=== PATIENT | female | born 1990 | race Caucasian/White ===

== ENCOUNTER 2018-11-18 09:36 | Observation (INO) ==
[2018-11-18] MEDS ORDERED: 0.9 % SODIUM CHLORIDE 1,000 ML IV ONE (09:42)
[2018-11-18 10:30] LABS: Basophils # (Auto) 0 K/mcL (0.0-0.3); Basophils % (Auto) 0.4 % (0.0-2.0); Eosinophils # (Auto) 0 K/mcL (0.0-0.7); Eosinophils % (Auto) 0.4 % (0.0-7.0); Granulocytes % (Auto) 69.2 % (38.0-78.0); Hematocrit 42.7 % (36.0-48.0); Hemoglobin 14.1 g/dL (12.0-15.0); Lymphocytes # (Auto) 2.5 K/mcL (1.5-4.8); Lymphocytes % (Auto) 21.7 % (15.5-49.0); Mean Cell Volume 84.9 fL (80.0-100.0); Mean Platelet Volume 7.9 fL (7.4-10.4); Monocytes # (Auto) 0.9 K/mcL (0.1-0.9); Monocytes % (Auto) 8.3 % (1.0-12.0); Platelet Count 317 K/mcL (140-440); RBC 5.03 M/mcL (4.00-5.20); Red Cell Distribution Width 15.7 % (11.5-14.5); WBC 11.4 K/mcL (4.5-11.0)
[2018-11-18] MEDS ORDERED: ONDANSETRON 4 MG/2 ML VIAL IV ONE (10:35)
[2018-11-18] MEDS: HYDROmorphone 2 MG/ML VIAL IV PRN ×3 (10:44→16:44)
[2018-11-18 10:53] LABS: ALT/SGPT 145 U/l (0-40); AST/SGOT 255 U/l (0-37); Albumin 4.4 gm/dL (3.2-5.2); Albumin/Globulin Ratio 1.3 (1.0-2.3); Alkaline Phosphatase 110 U/L (39-117); Bilirubin,Total 0.5 mg/dL (0.0-1.0); Blood Urea Nitrogen 10 mg/dl (6-20); CRP,High Sensitivity 9.8 mg/L (1.0-3.0); Calcium 9.7 mg/dl (8.6-10.4); Carbon Dioxide 23 mmol/L (22-30); Chloride 105 mmol/L (96-108); Globulin 3.4 gm/dL (2.2-3.7); Glomerular Filtration Rate 101; Glucose 109 mg/dL (70-105)
[2018-11-18 12:02] LABS: Appearance,Urine CLEAR; Bacteria,Urine FEW /hpf (0); Bilirubin,Urine NEG (NEG); Color,Urine YELLOW; Glucose,Urine (UA) NEGATIVE (NEG); Ketones,Urine NEG (NEG); Leukocyte Esterase,Urine NEG /uL (NEG); Nitrate,Urine NEG (NEG); Protein,Urine NEG (NEG); Specific Gravity,Urine 1.012 (1.000-1.035); Urine Blood NEG mg/dL (<0.03); Urine RBC < 1 /hpf (0-1); Urine Squamous Epithelial Cell < 1 /hpf (0-4); Urine WBC 1 /hpf (0-4); Urobilinogen,Urine NEG (NEG)
[2018-11-18 12:03] LABS: Culture Indicated,Urine YES
--- NOTE | 2018-11-18 12:17 | Emergency Department Note ---
Abdominal Pain HPI - General Chief Complaint: Abdominal Pain Stated Complaint: right upper abd pain every month since having baby Time Seen by Provider: 11/18/18 09:56 Source: patient Mode of arrival: ambulatory Limitations: no limitations - History of Present Illness HPI Narrative: 28-year-old female presents with right upper quadrant abdominal pain. This has been intermittent off and on for the last few months since she had her baby however it seems to have gotten much worse over the last few days. She has had chills but unknown fever. Positive nausea with some vomiting. No diarrhea. States it seems to get much worse after she eats sometimes but not always. No home treatments. States the last 48 hours it has progressively gotten worse and will not let up at all so she decided to come in.States that time the pain is so severe it radiates into her back and up into the right shoulder. - Related Data Home Medications Medication Instructions Recorded Confirmed No Known Home Meds 11/18/18 11/18/18 Allergies Allergy/AdvReac Type Severity Reaction Status Date / Time No Known Drug Allergies Allergy Verified 11/18/18 09:39 Review of Systems All systems ED: reviewed and negative except as stated. Abdominal Pain PMH - Past Medical History Medical history: Reports: other () Surgical history ED: Reports: no surgical history - Social History Smoking status: Never smoker Alcohol use: Reports: Rarely Drug use: Reports: none Physical Exam Limitations: no limitations General appearance: alert, grimacing Head: atraumatic, normocephalic, normal inspection Eye: Present: normal appearance. Absent: conjunctival injection ENT: Present: mucous membranes moist Chest: Present: symmetric chest wall rise Respiratory: Present: normal lung sounds bilaterally. Absent: respiratory distress, rales/crackles, wheezes, accessory muscle use Cardiovascular: Present: regular rate, normal heart sounds Abdominal: Present: soft, tenderness (RUQ), guarding (RUQ), normal bowel sounds. Absent: distention, rigidity, mass Extremities: Present: normal inspection Back: Absent: CVA tenderness (R), CVA tenderness (L) Neurological: Present: alert, oriented X3, normal gait Psychiatric: Present: normal affect, normal mood Skin: Present: warm, dry, intact, normal color. Absent: rash, hives, cyanosis, diaphoresis Course Course Narrative: Patient has required a couple doses of pain medication and her nausea is slightly improved. Still seems to be having some significant pain. At 1218 I did speak with the surgeon on-call, Dr. Barr would like me to put in some holding orders for this patient and he will plan to do surgery tomorrow. Patien t agreeable. Vital Signs Temperature 96.8 F L 11/18/18 09:37 Pulse Rate 90 11/18/18 09:37 Respiratory Rate 18 11/18/18 09:37 Blood Pressure 149/93 11/18/18 09:37 Pulse Oximetry (%) 98 11/18/18 09:37 Temperature 96.8 F L 11/18/18 09:37 Pulse Rate 67 11/18/18 12:07 Respiratory Rate 18 11/18/18 09:37 Blood Pressure 109/70 11/18/18 12:07 Pulse Oximetry (%) 95 11/18/18 12:07 Abdominal Pain - Lab Data Lab results reviewed: Yes I reviewed the patient's lab results. Result diagrams: 11/18/18 09:59 11/18/18 09:59 Lab Results 11/18/18 11/18/18 11/18/18 Range/Units 09:44 09:59 09:59 WBC 11.4 H (4.5-11.0) K/mcL RBC 5.03 (4.00-5.20) M/mcL Hgb 14.1 (12.0-15.0) g/dL Hct 42.7 (36.0-48.0) % MCV 84.9 (80.0-100.0) fL MCH 28.0 (26.0-34.0) pg MCHC 33.0 (31.0-36.0) g/dL RDW 15.7 H (11.5-14.5) % Plt Count 317 (140-440) K/mcL MPV 7.9 (7.4-10.4) fL Gran % 69.2 (38.0-78.0) % Lymph % (Auto) 21.7 (15.5-49.0) % Cedar % (Auto) 8.3 (1.0-12.0) % Eos % (Auto) 0.4 (0.0-7.0) % Baso % (Auto) 0.4 (0.0-2.0) % Gran # 7.9 (1.8-8.0) K/mcL Lymph # (Auto) 2.5 (1.5-4.8) K/mcL Cedar # (Auto) 0.9 (0.1-0.9) K/mcL Eos # (Auto) 0 (0.0-0.7) K/mcL Baso # (Auto) 0 (0.0-0.3) K/mcL Sodium 140 (133-145) mmol/L Potassium 4.4 (3.3-5.1) mmol/L Chloride 105 (96-108) mmol/L Carbon Dioxide 23 (22-30) mmol/L Anion Gap 12.0 (8-16) BUN 10 (6-20) mg/dl Creatinine 0.8 (0.6-1.1) mg/dl GFR Calculation 101 Glucose 109 H (70-105) mg/dL Calcium 9.7 (8.6-10.4) mg/dl Total Bilirubin 0.5 (0.0-1.0) mg/dL AST 255 H (0-37) U/l ALT 145 H (0-40) U/l Alkaline Phosphatase 110 (39-117) U/L C-React Prot High Sens 9.8 H (1.0-3.0) mg/L Total Protein 7.8 (5.9-8.4) gm/dL Albumin 4.4 (3.2-5.2) gm/dL Globulin 3.4 (2.2-3.7) gm/dL Albumin/Globulin Ratio 1.3 (1.0-2.3) Lipase 23 (7-60) U/L Urine Color Yellow Urine Appearance Clear Urine pH 5.0 (5.0-9.0) Ur Specific Capron 1.012 (1.000-1.035) Urine Protein Neg (NEG) mg/dL Urine Glucose (UA) Negative (NEG) mg/dL Urine Ketones Neg (NEG) mg/dL Urine Occult Blood Neg (<0.03) mg/dL Urine Nitrate Neg (NEG) Urine Bilirubin Neg (NEG) mg/dL Urine Urobilinogen Neg (NEG) mg/dL Ur Leukocyte Esterase Neg (NEG) /uL Urine RBC < 1 (0-1) /hpf Urine WBC 1 (0-4) /hpf Ur Squamous Epith Cells < 1 (0-4) /hpf Urine Bacteria Few A (0) /hpf Ur Culture Indicated? Yes - Radiology Data Radiology results reviewed: Yes I reviewed the patient's radiology results. Disposition Pt seen by STUDENT DEVELOPMENT COORDINATOR/PA only: Yes Clinical Impression: Abdominal pain, Cholelithiasis, Nausea & vomiting Disposition: Home, Self-Care Condition: Fair Referrals: No,PCP [Primary Care Provider] - Kyra Barr MD [Physician] - Time of Disposition: 12:19
[2018-11-18 12:55] LABS: INR 0.9 (0.9-1.1); Prothrombin Time 12.6 sec (11.9-14.5)
--- NOTE | 2018-11-18 13:17 | Ultrasound Report ---
CLINICAL INFORMATION: RUQ abd pain, n/v COMPARISON: None. FINDINGS: Liver is normal in size configuration with elevated echotexture compatible with fatty change. No focal hepatic lesion. There are multiple stones in the gallbladder ranging up to 6 mm. Gallbladder wall is normal thickness: Two mm. Common bile is normal: 7 mm. Pancreas is unremarkable. No free fluid IMPRESSION: Cholelithiasis. Hyperechoic liver bowel fatty change Interpreted and Authenticated by: Mingo Mccall 11/18/18
[2018-11-18] MEDS: 0.9 % SODIUM CHLORIDE 1,000 ML IV SCH ×2 (13:35→22:24)
[2018-11-18] MEDS: PIPERACILLIN SODIUM/TAZOBACTAM 3.375 GM in DEXTROSE 5% IN WATER 50 ML IV SCH ×3 (13:36→23:38)
[2018-11-18] MEDS ORDERED: PROMETHAZINE 25 MG/ML VIAL ONE (13:43)
[2018-11-18] MEDS ORDERED: ACETAMINOPHEN 1,000 MG/100 ML BOTTLE IV ONE ×2 (14:44→18:34)
[2018-11-18] MEDS: ACETAMINOPHEN 1,000 MG in PREMIX 1 BAG IV SCH ×2 (14:45→18:45)
--- NOTE | 2018-11-18 15:01 | General Surg History&Physical ---
History of Present Illness Patient information: Note initiated : 11/18/18 at 2:59 pm Service Date, if different from initiated Date: [] Patient: Lillian Meraz a 28 y/o F admitted on 11/18/18 for right upper abd pain every month since having baby. Chief Complaint: [abdominal pain nausea and vomiting] HPI: Ms. Meraz is a 28 year old F admitted with recurrent abdominal pain with nausea and vomiting. She had onset of symptoms in July show a left the delivery of her child. She was having multiple episodes of right upper quadrant pain which radiated through to her back and to her right shoulder. The pain would usually last 1-3 hours. It was associated with multiple episodes of nausea vomiting. The pain has become much worse over the past week. She has had 2 attacks in the past 72 hours. She did not have any pain during her . Her white blood count is 11,000. Abdominal ultrasound shows multiple stones in the gallbladder. She is counseled for laparoscopic cholecystectomy which will be performed tomorrow. Review of Systems All systems PM: reviewed and no additional remarkable complaints except as stated (negative except as noted in history present illness) Past History Past medical history: No chronic medical illness Past surgical history: 1 Past family history: Mother age 56 alive and well Father age 58 alive and well Brother age 26 alive and well Past social history: Denies tobacco use Drinks beer about every 2 weeks Denies drug use Medications and Allergies Home Medications Medication Instructions Recorded Confirmed Type No Known Home Meds 11/18/18 11/18/18 History Allergies Allergy/AdvReac Type Severity Reaction Status Date / Time No Known Drug Allergies Allergy Verified 11/18/18 09:39 Exam Temp Pulse Resp BP Pulse Ox 96.8 F L 65 18 102/72 95 11/18/18 13:13 11/18/18 13:13 11/18/18 13:13 11/18/18 13:13 11/18/18 13:13 - General physical appearance well developed, well nourished, no distress, obese - Eyes PERRL, normal ocular movement - ENT normal pinna, normal nares, normal mucosa, no hearing loss, no congestion - Head Head exam IM: Present: atraumatic, normocephalic - Neck no masses, no bruits, trachea midline, no lymphadenopathy, no venous distension - Cardiovascular Cardiovascular exam IM: Present: normal rate and rhythm, RRR, +S1, +S2. Absent: JVD, tachycardia - Respiratory normal expansion, normal respiratory effort, clear to auscultation - Abdomen Abdomen: Present: soft, tender (tenderness in right upper quadrant with guarding; mild tenderness in epigastrium), bowel sounds Hernia: Present: none - Genitourinary Present: normal external genitalia - Integumentary Present: no rash, no growths, no abnormal pigmentation - Neurologic Present: normal coordination, normal sensation - Musculoskeletal Present: normal gait, normal posture - Psychiatric Present: oriented to time, oriented to person, oriented to place, speech is normal, memory intact Assessment and Plan (1) Cholelithiasis and cholecystitis without obstruction Patient will be treated with antibiotics, analgesics and antiemetics tonight. She will be added to the schedule for cholecystectomy tomorrow. Status: Acute
[2018-11-18] MEDS: PANTOPRAZOLE 40 MG TABLET PO SCH (16:40)
[2018-11-18] MEDS: ONDANSETRON 4 MG/2 ML VIAL IV PRN (16:44)
[2018-11-18] MEDS: PROMETHAZINE 25 MG/ML VIAL IV PRN (18:23)
[2018-11-19] MEDS ORDERED: ACETAMINOPHEN 1,000 MG/100 ML BOTTLE IV ONE ×3 (00:07→09:24)
[2018-11-19] MEDS: ACETAMINOPHEN 1,000 MG in PREMIX 1 BAG IV SCH ×2 (00:13→06:48)
[2018-11-19 05:44] LABS: Basophils # (Auto) 0 K/mcL (0.0-0.3); Basophils % (Auto) 0.7 % (0.0-2.0); Eosinophils # (Auto) 0.2 K/mcL (0.0-0.7); Eosinophils % (Auto) 2.5 % (0.0-7.0); Granulocytes % (Auto) 52.6 % (38.0-78.0); Hematocrit 33.7 % (36.0-48.0); Hemoglobin 11.2 g/dL (12.0-15.0); Lymphocytes # (Auto) 2.3 K/mcL (1.5-4.8); Lymphocytes % (Auto) 35.9 % (15.5-49.0); Mean Cell Volume 86.2 fL (80.0-100.0); Mean Corpuscular HGB Conc 33.1 g/dL (31.0-36.0); Monocytes # (Auto) 0.5 K/mcL (0.1-0.9); Monocytes % (Auto) 8.3 % (1.0-12.0); Platelet Count 253 K/mcL (140-440); RBC 3.91 M/mcL (4.00-5.20); WBC 6.4 K/mcL (4.5-11.0)
[2018-11-19] MEDS: 0.9 % SODIUM CHLORIDE 1,000 ML IV SCH ×3 (05:55→12:12)
[2018-11-19] MEDS: PIPERACILLIN SODIUM/TAZOBACTAM 3.375 GM in DEXTROSE 5% IN WATER 50 ML IV SCH ×4 (05:55→23:31)
[2018-11-19 06:07] LABS: ALT/SGPT 175 U/l (0-40); AST/SGOT 155 U/l (0-37); Albumin 3.2 gm/dL (3.2-5.2); Albumin/Globulin Ratio 1.1 (1.0-2.3); Alkaline Phosphatase 95 U/L (39-117); Bilirubin,Direct 0.2 mg/dL (0.0-0.3); Bilirubin,Total 0.8 mg/dL (0.0-1.0); Blood Urea Nitrogen 5 mg/dl (6-20); Calcium 8.5 mg/dl (8.6-10.4); Carbon Dioxide 21 mmol/L (22-30); Chloride 109 mmol/L (96-108); Globulin 2.8 gm/dL (2.2-3.7); Glomerular Filtration Rate 119; Glucose 81 mg/dL (70-105); Lactate Dehydrogenase 216 U/L (94-250); Phosphorous 3.5 mg/dL (2.7-4.5); Triglycerides 124 mg/dl (<150); Uric Acid 3.3 mg/dL (2.5-8.0)
[2018-11-19] MEDS: PANTOPRAZOLE 40 MG TABLET PO SCH ×2 (06:48→17:03)
[2018-11-19] MEDS ORDERED: IPRATROPIUM/ALBUTEROL 3 ML AMPUL.NEB NEB PRN ×2 (07:30→09:24)
[2018-11-19] MEDS ORDERED: SCOPOLAMINE 1 PATCH PATCH TOPICAL PRN (07:30)
[2018-11-19] MEDS: HYDROmorphone 2 MG/ML VIAL IV PRN ×3 (08:29→18:24)
[2018-11-19] MEDS: ONDANSETRON 4 MG/2 ML VIAL IV PRN (08:30)
[2018-11-19] MEDS ORDERED: FLUMAZENIL 0.1 MG/ML ML IV PRN (09:24)
[2018-11-19] MEDS ORDERED: PROMETHAZINE 25 MG/ML VIAL IV PRN (09:24)
[2018-11-19] MEDS ORDERED: MEPERIDINE 50 MG/ML INJECTION IM PRN (09:24)
[2018-11-19] MEDS ORDERED: NALOXONE HCL 0.4 MG/ML VIAL IV PRN (09:24)
[2018-11-19] MEDS ORDERED: ONDANSETRON 4 MG/2 ML VIAL IV PRN (09:24)
[2018-11-19] MEDS ORDERED: LACTATED RINGERS 250 ML IV PRN (09:24)
[2018-11-19] MEDS ORDERED: KETOROLAC 30 MG/ML VIAL IV PRN (09:24)
[2018-11-19] MEDS ORDERED: diphenhydrAMINE 50 MG/ML VIAL IV PRN (09:24)
[2018-11-19] MEDS ORDERED: PROMETHAZINE 25 MG/ML VIAL IM PRN (09:24)
[2018-11-19] MEDS ORDERED: LACTATED RINGERS 1,000 ML IV SCH (09:30)
[2018-11-19] MEDS ORDERED: fentaNYL 250 MCG/5 ML VIAL IV ONE (10:00)
[2018-11-19] MEDS ORDERED: DEXAMETHASONE 10 MG/ML VIAL IV ONE (10:00)
[2018-11-19] MEDS ORDERED: LIDOCAINE HCL/PF 100 MG/5 ML SYRINGE IV ONE (10:00)
[2018-11-19] MEDS ORDERED: SUGAMMADEX SODIUM 200 MG/2 ML VIAL IV ONE (10:00)
[2018-11-19] MEDS ORDERED: MIDAZOLAM 5 MG/5 ML VIAL IV ONE (10:00)
[2018-11-19] MEDS ORDERED: PROPOFOL 200 MG/20 ML VIAL IV ONE (10:00)
[2018-11-19] MEDS ORDERED: ONDANSETRON 4 MG/2 ML VIAL IV ONE (10:00)
[2018-11-19] MEDS ORDERED: ROCURONIUM 10 MG/ML ML IV ONE (10:00)
--- NOTE | 2018-11-19 10:59 | Brief Operative Note ---
Date of procedure: 11/19/18 Pre-op diagnosis: ACUTE CHOLECYSTITIS WITH CHOLELITHIASIS Post-op diagnosis: other (ACUTE CHOLECYSTITIS WITH CHOLELITHIASIS) Procedure: LAPAROSCOPIC CHOLECYSTECTOMY Grafts/Implants: No Anesthesia: GETA Findings: DILATED EDEMATOUS GALLBLADDER WITH STONES Complications: none Surgeon: Kyra Barr Estimated blood loss (cc): 10 Specimens Removed/Pathology: other (GALLBLADDER) Condition: stable Disposition: PACU
[2018-11-19] MEDS: fentaNYL 100 MCG/2 ML VIAL IV PRN ×4 (11:12→11:30)
[2018-11-19] MEDS ORDERED: ACETAMINOPHEN 1,000 MG in PREMIX 1 BAG IV SCH (11:15)
[2018-11-19] MEDS: MEPERIDINE 25 MG/ML SYRINGE IV PRN ×2 (11:33→11:40)
[2018-11-19] MEDS: PROMETHAZINE 25 MG/ML VIAL IV PRN (12:12)
[2018-11-19] MEDS: 0.9 % SODIUM CHLORIDE 10 ML SYRINGE IV SCH ×2 (13:17→21:15)
--- NOTE | 2018-11-19 15:26 | Operative Note ---
DATE OF OPERATION: 11/19/2018 PREOPERATIVE DIAGNOSIS: Acute cholecystitis with cholelithiasis. POSTOPERATIVE DIAGNOSIS: Acute cholecystitis with cholelithiasis. PROCEDURE: Laparoscopic cholecystectomy. SURGEON: Kyra Barr M.D. DESCRIPTION OF PROCEDURE: Under general anesthesia, the patient's abdomen was prepped and draped in a sterile field. Timeout procedure was carried out as per protocol. A supraumbilical midline incision was made and Veress needle was inserted uneventfully. The abdomen was insufflated with 2.5 liters of CO2. A 12 mm port was placed. Laparoscope was placed. A dilated, edematous gallbladder with stone was encountered. It had a moderate amount of acute and chronic adhesions. Under videoscopic guidance, a 12 mm port and two 5 mm ports were placed in the right subcostal region. The gallbladder was decompressed with a Weck needle. It was then grasped and positioned. Adhesions were taken down with blunt dissection and electrocautery. The cystic duct and cystic artery were dissected definitively and followed back to the gallbladder. The cystic duct was clipped with five clips close to the gallbladder and divided. The cystic artery had two branches. Each was clipped with four clips on the wall of the gallbladder and divided. The gallbladder was then from the infrahepatic bed using electrocautery. It was placed in an Endopouch and retrieved. Hemostasis was achieved in the bed. There was no bleeding and there was no evidence of bile leak with careful watching. CO2 was allowed to escape from the abdomen and the ports were removed. Fascia at the umbilicus was closed with interrupted 0 Vicryl. Skin incisions were closed with faith. Tegaderm dressings were placed. The patient tolerated the procedure well. She was awakened, transferred to a bed, and taken to the postanesthetic care unit in stable, satisfactory condition. LCS:milka Job ID: [id number] Doc ID: [id number] Kyra Barr M.D.
[2018-11-19] MEDS ORDERED: PANTOPRAZOLE 40 MG TABLET PO SCH (17:00)
[2018-11-20] MEDS: HYDROmorphone 2 MG/ML VIAL IV PRN ×3 (04:25→12:22)
[2018-11-20] MEDS: 0.9 % SODIUM CHLORIDE 10 ML SYRINGE IV SCH (05:34)
[2018-11-20] MEDS: PIPERACILLIN SODIUM/TAZOBACTAM 3.375 GM in DEXTROSE 5% IN WATER 50 ML IV SCH ×2 (05:38→12:27)
[2018-11-20 05:39] LABS: Basophils # (Auto) 0 K/mcL (0.0-0.3); Basophils % (Auto) 0.2 % (0.0-2.0); Eosinophils # (Auto) 0 K/mcL (0.0-0.7); Eosinophils % (Auto) 0 % (0.0-7.0); Granulocytes % (Auto) 73.2 % (38.0-78.0); Hematocrit 36.9 % (36.0-48.0); Hemoglobin 12.1 g/dL (12.0-15.0); Lymphocytes # (Auto) 1.6 K/mcL (1.5-4.8); Lymphocytes % (Auto) 19.4 % (15.5-49.0); Mean Cell Volume 85.9 fL (80.0-100.0); Mean Corpuscular HGB Conc 32.9 g/dL (31.0-36.0); Mean Platelet Volume 8.2 fL (7.4-10.4); Monocytes # (Auto) 0.6 K/mcL (0.1-0.9); Monocytes % (Auto) 7.2 % (1.0-12.0); Platelet Count 262 K/mcL (140-440); RBC 4.29 M/mcL (4.00-5.20); Red Cell Distribution Width 15.8 % (11.5-14.5); WBC 8.3 K/mcL (4.5-11.0)
[2018-11-20 06:13] LABS: ALT/SGPT 332 U/l (0-40); AST/SGOT 371 U/l (0-37); Albumin 3.4 gm/dL (3.2-5.2); Albumin/Globulin Ratio 1.1 (1.0-2.3); Alkaline Phosphatase 154 U/L (39-117); Bilirubin,Direct 0.5 mg/dL (0.0-0.3); Blood Urea Nitrogen 4 mg/dl (6-20); Calcium 8.8 mg/dl (8.6-10.4); Carbon Dioxide 21 mmol/L (22-30); Chloride 106 mmol/L (96-108); Globulin 3.1 gm/dL (2.2-3.7); Glomerular Filtration Rate 119; Glucose 102 mg/dL (70-105); Lactate Dehydrogenase 401 U/L (94-250); Phosphorous 2.9 mg/dL (2.7-4.5); Triglycerides 115 mg/dl (<150); Uric Acid 2.5 mg/dL (2.5-8.0)
[2018-11-20] MEDS: PANTOPRAZOLE 40 MG TABLET PO SCH (06:58)
[2018-11-20] MEDS: 0.9 % SODIUM CHLORIDE 1,000 ML IV SCH (07:25)
[2018-11-20] MEDS: ONDANSETRON 4 MG/2 ML VIAL IV PRN (10:09)
--- NOTE | 2018-11-20 12:45 | Discharge Summary ---
Providers - Providers Patient information: Note initiated : 11/20/18 at 12:43 pm Service Date, if different from initiated Date: [] Patient: Lillian Meraz 28 y/o F admitted on 11/18/18 for right upper abd pain every month since having baby. Chief Complaint: [] Date of admission: 11/18/18 Discharge date: 11/20/18 Attending physician: Kyra Barr Hospitalization Hospital Course: 28-year-old female admitted on November 29 with cholelithiasis with cholecystitis. She underwent laparoscopic cholecystectomy on 19 November. She has done well and has no complaints. She is tolerating diet. White blood count 8.3, hemoglobin 12.1, bilirubin 1. Patient is stable for discharge home Discharge diagnosis: cholelithiasis with cholecystitis Reason for admission: abdominal pain nausea and vomiting Procedures: Laparoscopic cholecystectomy Complications: None Exam Temp Pulse Resp BP Pulse Ox 97.5 F 69 18 126/80 90 11/20/18 12:15 11/20/18 12:15 11/20/18 12:15 11/20/18 12:15 11/20/18 12:15 - General physical appearance well developed, well nourished, no distress - Eyes PERRL, normal ocular movement - ENT normal pinna, normal nares, normal mucosa, no hearing loss, no congestion - Head Head exam IM: Present: atraumatic, normocephalic - Neck no masses, no bruits, trachea midline, no lymphadenopathy, no venous distension - Cardiovascular Cardiovascular exam IM: Present: normal rate and rhythm - Respiratory normal expansion, normal respiratory effort, clear to percussion, clear to auscultation - Abdomen Abdomen: Present: soft, tender (mild tenderness around port site otherwise benign abdominal exam), bowel sounds Hernia: Present: none - Genitourinary Present: normal external genitalia - Integumentary Present: no rash, no growths, no abnormal pigmentation - Neurologic Present: normal coordination, normal sensation - Musculoskeletal Present: normal gait, normal posture - Psychiatric Present: oriented to time, oriented to person, oriented to place, speech is normal, memory intact Discharge Plan - Patient/Caregiver Discharge Instructions Activity: increase activity as tolerated Diet: Low Fat ( follow-up in the office in 2 weeks) Additional Instructions: Follow-up in the office in 2 weeks Work release for 2 weeks Prescriptions: oxyCODONE/APAP [Percocet 5-325 mg] 1 tab PO Q4HP PRN #40 tab PRN Reason: Pain Prescription Printed - Follow up Plan Follow up with: Kyra Barr MD [Physician] - 12/04/18 8:30 am No,PCP [Primary Care Provider] - Disposition: Home, Self-Care Care Plan Goals: This discharge packet is provided to you to help keep you informed about your care. We want to ensure you get everything you need when you go home. You will also be receiving a call from us in a few days to follow up with you and see how you are doing since your discharge. This gives us a chance to listen to any concerns you maybe experiencing since you were discharged or any additional needs you may have, as well as providing us feedback on your care experience. We strive to always provide excellent care and thank you for your feedback and for choosing [facility]. Prognosis: Good Rehab Potential: Good I certify that the patient requires SNF services.: No Overall status at discharge: patient is progressing back to baseline Pending Studies Resuscitation Status Full Code Diet Full Liquid Diet Start SatNov 19 1102 Hydromorphone HCl (Dilaudid) 1 mg IV Q2HP PRN; Protocol PRN Reason: Per Pain Protocol Last Admin: 11/20/18 12:22 Dose: 1 mg Documented by: Admin: 11/20/18 08:10 Dose: 1 mg Documented by: Admin: 11/20/18 04:25 Dose: 1 mg Documented by: Admin: 11/19/18 18:24 Dose: 1 mg Documented by: Admin: 11/19/18 14:53 Dose: 1 mg Documented by: Admin: 11/19/18 08:29 Dose: 1 mg Documented by: [email or web address] Admin: 11/18/18 16:44 Dose: 1 mg Documented by: [email or web address] Piperacillin Sod/Tazobactam (Sod 3.375 gm/ Dextrose) 50 mls @ 100 mls/hr IV Q6H [facility]; Protocol Last Admin: 11/20/18 12:27 Dose: 100 mls/hr Documented by: Infusion: 11/20/18 06:30 Dose: 100 mls/hr Documented by: Admin: 11/20/18 05:38 Dose: 100 mls/hr Documented by: Infusion: 11/20/18 00:01 Dose: 100 mls/hr Documented by: Admin: 11/19/18 23:31 Dose: 100 mls/hr Documented by: Infusion: 11/19/18 17:36 Dose: 0 mls/hr Documented by: Admin: 11/19/18 17:06 Dose: 100 mls/hr Documented by: Infusion: 11/19/18 12:42 Dose: 0 mls/hr Documented by: Admin: 11/19/18 12:12 Dose: 100 mls/hr Documented by: Infusion: 11/19/18 06:25 Dose: 0 mls/hr Documented by: Admin: 11/19/18 05:55 Dose: 100 mls/hr Documented by: Infusion: 11/19/18 00:08 Dose: 100 mls/hr Documented by: Admin: 11/18/18 23:38 Dose: 100 mls/hr Documented by: Infusion: 11/18/18 18:45 Dose: 100 mls/hr Documented by: Admin: 11/18/18 18:15 Dose: 100 mls/hr Documented by: Infusion: 11/18/18 14:06 Dose: 0 mls/hr Documented by: Admin: 11/18/18 13:36 Dose: 100 mls/hr Documented by: DENISE Sodium Chloride (Sodium Chloride 0.9%) 1,000 mls @ 75 mls/hr IV .[id number] FROYLAN Last Admin: 11/20/18 07:25 Dose: 75 mls/hr Documented by: Infusion: 11/20/18 06:30 Dose: 75 mls/hr Documented by: Admin: 11/19/18 12:12 Dose: 75 mls/hr Documented by: DENISE Ondansetron HCl (Zofran) 4 mg IV Q4-6HP PRN PRN Reason: Nausea And Vomiting Last Admin: 11/20/18 10:09 Dose: 4 mg Documented by: Admin: 11/19/18 08:30 Dose: 4 mg Documented by: Admin: 11/18/18 16:44 Dose: 4 mg Documented by: DENISE Pantoprazole Sodium (Protonix) 40 mg PO BIDAC [facility] Last Admin: 11/20/18 06:58 Dose: 40 mg Documented by: Admin: 11/19/18 17:03 Dose: 40 mg Documented by: Admin: 11/19/18 06:48 Dose: Not Given Documented by: Admin: 11/18/18 16:40 Dose: 40 mg Documented by: DENISE Promethazine HCl (Phenergan) 12.5 mg IV Q4HP PRN PRN Reason: Nausea And Vomiting Last Admin: 11/19/18 12:12 Dose: 12.5 mg Documented by: Admin: 11/18/18 18:23 Dose: 12.5 mg Documented by: DENISE Sodium Chloride (Saline Flush) 10 ml IV Q8 [facility] Last Admin: 11/20/18 05:34 Dose: Not Given Documented by: Admin: 11/19/18 21:15 Dose: Not Given Documented by: Admin: 11/19/18 13:17 Dose: Not Given Documented by: DENISE Shift Summary 11/20/18 04:34 Shift Summary by Brittney Mcclendon The patient is alert and oriented times four, able to make needs known, VS WDL last night. She has 4 lap sites with faith and transparent dressings to her abdomen with scant to no drainage. Abdomen soft and is passing flatus, has denied nausea all shift, medicated twice with 1 mg Dilaudid (last dose given at 0415). Has a steady gait is up to void in restroom (850-900 ml at at time) and requires assist with IV pole only, is tolerating full liquid diet and has taken PO well. Is receiving Zosyn IV scheduled and has NS infusing at 75 ml/hr into at 20 gauge right hand. Her significant other and baby were at bedside last evening, plan is to discharge to home later today. Initialized on 11/20/18 04:34 - END OF NOTE
--- NOTE | 2018-11-20 14:27 | Surgical Pathology Report ---
HISTOLOGY SPECIMEN MICROSCOPIC DIAGNOSIS GALLBLADDER, CHOLECYSTECTOMY: -- CHRONIC CHOLECYSTITIS. -- CHOLELITHIASIS. (DMT:jennifer) PROCEDURAL IMPRESSION Cholelithiasis; cholecystitis. GROSS DESCRIPTION Received in formalin designated as gallbladder per requisition, is a purple-hwang gallbladder that measures 8.5 x 3.4 x 1.5 cm. There is a metal clip on the duct. There are multiple yellow stones identified from less than 0.1 to 0.4 cm. The mucosa is pink-beckwith and covered with lacy yellow pigmentation. The wall is up to 0.2 cm thick with up to 0.5 cm of beckwith to beckwith-brown attached fat. At the tip there is an additional 1 cm cavity filled with stones. (SCB:jennifer) Electronically Signed by: Prashanth Galdamez M.D.
== END 2018-11-20 13:50 | disposition home or self-care (01) ==
LOC: ED 09:36 → MEDSUR 09:36
PROVIDERS: ADMIT Family Medicine Adult Medicine; ATTEND Family Medicine Adult Medicine